=== PATIENT | male | born 1965 ===

== ENCOUNTER 2020-01-04 07:10 | Outpatient (CLI) | payer OTHER ==
--- NOTE | 2020-01-04 08:02 | Ultrasound Report ---
ULTRASOUND SOFT TISSUE HEAD AND NECK HISTORY: Neck swelling, mass, lump. Patient reports more pain and swelling. Feels like food is gettin g stuck in throat when eating. TECHNIQUE: Grayscale ultrasound with color Doppler imaging FINDINGS: Targeted ultrasound was performed in the right side of the neck and under the chin on the right side at the site of pain and swelling per the patient. The images demonstrate normal-appearing soft tissue s. No evidence for mass, adenopathy or fluid collection. IMPRESSION: No abnormality identified. Signer Name: Arpit Smith Jr, MD Signed: 01/04/2020 7:57 AM Workstation Name: [id number]
== END 2020-01-04 07:11 | disposition home or self-care (01) ==
LOC: US 07:10
PROVIDERS: ATTEND Internal Medicine
DX: R22.1 Localized swelling, mass and lump, neck (principal)
CPT/HCPCS: 76536